=== PATIENT | male | born 1995 | race Caucasian/White ===

== ENCOUNTER 2017-06-11 00:58 | Emergency (ER) | payer OTHER ==
[2017-06-11 01:04] VITALS: BP 142/83; PULSE 70; RESP 18; TEMP 98.8; O2SAT 95
--- NOTE | 2017-06-11 01:04 | EDPHY ---
H & P Stated Complaint: LAC LEFT HAND, CUT ON WOOD RAILING ON STAIRS 5 HPI/ROS: HPI CHIEF COMPLAINT: Left hand laceration HISTORY OF PRESENT ILLNESS: This patient very pleasant 21-year-old male, no significant medical history does not take any daily medications he tells me his tetanus shot is up-to-date he presents emergency room with a laceration to the palmar surface of his left hand. He states he had 7 alcoholic beverages this evening and he cut his hand on a railing. The railing was wood and metal. There was no debris involved. He denies the board being broken. He slid his hand down the railing and sustained a laceration. The laceration is located palmar surface left hand thenar eminence 5 cm in vertical length. No other injuries. Past Medical History: Denies significant medical history Past Surgical History: Denies significant surgical history Social History: Denies daily use of drugs alcohol tobacco products did have alcohol this evening. Family History: Noncontributory ROS REVIEW OF SYSTEMS: A comprehensive 10 point review of systems is otherwise negative aside from elements mentioned in the history of present illness. Exam Constitutional triage nursing summary reviewed, vital signs reviewed, awake/ alert. Eyes normal conjunctivae and sclera, EOMI, PERRLA. HENT normal inspection, atraumatic, moist mucus membranes, no epistaxis, neck supple/ no meningismus, no raccoon eyes. Respiratory clear to auscultation bilaterally, normal breath sounds, no respiratory distress, no wheezing. Cardiovascular rate normal, regular rhythm, no murmur, no edema, distal pulses normal. Gastrointestinal soft, non-tender, no rebound, no guarding, normal bowel sounds, no distension, no pulsatile mass. Genitourinary no CVA tenderness. Musculoskeletal no midline vertebral tenderness, full range of motion, no calf swelling, no tenderness of extremities, no meningismus, good pulses, neurovascularly intact. Skin palmar surface: Left hand palmar surface thenar eminence 5 cm vertical laceration, neurovasculary intact, good rail signal worker strength, no arterial injury no tendon injury, no foreign bodies visualized with wound exploration, pink, warm, & dry, no rash Neurologic awake, alert and oriented x 3, AAOx3, moves all 4 extremities equally, motor intact, sensory intact, CN II-XII intact, normal cerebellar, normal vision, normal speech. Psychiatric normal mood/affect. Heme/Lymph/Immune no lymphadenopathy. Differential Diagnosis: Includes but is not limited to in a particular order left hand laceration, soft tissue injury Medical Decision Making: Plan for this patient washout of the hand laceration, laceration will need to be repaired, and explored for foreign bodies Re-evaluation: Laceration Repair Procedure: Verbal Consent was obtained, Under sterile conditions, The patient had lidocaine with epinephrine used approximately 5ccs to local anesthetize the Left hand palmar aspect 5cm vertical Laceration. The wound was copiously irrigated with sterile fluid, the wound was explored for foreign bodies there were none visualized, the wound was explored with a sterile glove to the base. There are no deep structures involved, including no arterial injury. FIVE 5.O interrupted Prolene Sutures were placed in this patient's laceration. He had good close approximation of the wound edges. He Tolerated this well. Patient understands watch his wound closely for signs of infection. Return emergency if there is any signs of infection, sutures need to be removed in 12 days. Patient understands. Source: Patient - Personal History Current Tetanus/Diphtheria Vaccine: Yes - Medical/Surgical History Hx Asthma: No Hx Chronic Respiratory Disease: No Hx Diabetes: No Hx Cardiac Disease: No Hx Renal Disease: No Hx Cirrhosis: No Hx Alcoholism: No Hx HIV/AIDS: No Hx Splenectomy or Spleen Trauma: No Other PMH: DENIES - Social History Smoking Status: Never smoked Constitutional: Initial Vital Signs Temperature (C) 37.1 C 06/11/17 01:02 Heart Rate 70 06/11/17 01:02 Respiratory Rate 18 06/11/17 01:02 Blood Pressure 142/83 H 06/11/17 01:02 O2 Sat (%) 95 06/11/17 01:02 O2 Delivery Mode Room Air Allergies/Adverse Reactions: No Known Allergies Allergy (Unverified 06/11/17 01:01) Home Medications: Medication Instructions Recorded NK [No Known Home Meds] 06/11/17 Departure - Departure Disposition: Home, Routine, Self-Care Clinical Impression: Laceration Condition: Good Instructions: Laceration (ED), Care For Your Stitches (ED) Additional Instructions: 1. Please keep your laceration clean, dry and protected. 2. Watch for signs of infection this includes redness, swelling, drainage, pus. 3. Your sutures need to be removed in 12 days. Referrals: [facility] [Other] - As per Instructions
== END 2017-06-11 01:38 | disposition home or self-care (01) ==
PROC: 0HQGXZZ Repair Left Hand Skin, External Approach (ICD-10-PCS; principal; 2017-06-11)
DX: S61.412A Laceration without foreign body of left hand, initial encounter (principal); W26.8XXA Contact with other sharp object(s), not elsewhere classified, initial encounter